=== PATIENT | male | born 1980 | race African-American/Black ===

== ENCOUNTER 2019-09-14 09:30 | Emergency (ER) | payer OTHER ==
[~2019-09-14] VITALS: Ht 177.8 cm; Wt 70.8 kg
--- NOTE | ~2019-09-14 | EKG ---
[facility] [place] [address] ELECTROCARDIOGRAM REPORT Name: MELISSA HAYWOOD Room #: [facility].#: [id number] Admission: 09/14/19 Attend Phys: Discharge: Date of : 80 Report #: [id number] THIS REPORT FOR: cc: FAM - Family physician unknown FAM - Family physician unknown Markus Aparicio MD ~ THIS REPORT FOR: //name// [facility] ED Test Date: 2019-09-14 Test Time: 10:40:27 Pat Name: MELISSA HAYWOOD Department: Room: Gender: M Air Conditioning Technician: [place]ATT : 1980 Requested By: Paulo Mata Order Number: [id number] MD: Measurements Intervals [place] Rate: 57 P: 22 MT: 217 QRS: 36 QRSD: 83 T: 25 QT: 381 QTc: 371 Interpretive Statements Sinus rhythm Prolonged MT interval Probable left ventricular hypertrophy ST elev, probable normal early repol pattern No previous ECG available for comparison [email or web address] By: 1040 1040 Epiphany Epiphany, /EPI
[2019-09-14 10:08] LABS: ABSOLUTE NEUTROPHILS 2.8 thou/uL (1.4-8.2); BASOPHILS 0.6 % (0.0-2.0); HEMATOCRIT 42.1 % (42.0-52.0); HEMOGLOBIN 13.4 gm/dL (14.0-18.0); LYMPHOCYTES 26.2 % (24.0-44.0); MCH 27.7 pg (26.0-34.0); MCHC 31.8 g/dL (28.0-37.0); MONOCYTES 8.2 % (1.0-8.0); PLATELET COUNT 203 thou/uL (150-400); RBC 4.83 mil/uL (4.50-6.00); RDW 13.5 % (10.5-14.5); WBC 4.4 thou/uL (4.0-11.0)
[2019-09-14 10:22] LABS: ANION GAP 5 mmol/L (7-16); BUN 14 mg/dL (7-18); CALCIUM 8.4 mg/dL (8.5-10.1); CHLORIDE 108 mmol/L (98-107); CO2 28 mmol/L (21-32); CREATININE 0.9 mg/dL (0.7-1.3); GLUCOSE 99 mg/dL (74-106); POTASSIUM 4.3 mmol/L (3.5-5.1); SODIUM 141 mmol/L (136-145)
[2019-09-14 10:27] LABS: ALBUMIN 3.6 g/dL (3.4-5.0); MAGNESIUM 1.8 mg/dL (1.8-2.4); SGOT 20 U/L (15-37); SGPT 25 U/L (30-65); TOTAL BILIRUBIN 0.3 mg/dL (<0.1-1.0); TOTAL PROTEIN 7.1 g/dL (6.4-8.2); TROPONIN-I <0.06 ng/mL (<0.06)
[2019-09-14 11:30] LABS: URINE BILIRUBIN NEGATIVE (Negative); URINE BLOOD TRACE (Negative); URINE CLARITY CLEAR; URINE COLOR YELLOW; URINE GLUCOSE-RANDOM* NEGATIVE (Negative); URINE KETONES NEGATIVE (Negative); URINE LEUKOCYTES-REFLEX TRACE (Negative); URINE NITRITE-REFLEX NEGATIVE (Negative); URINE PROTEIN (DIPSTICK) NEGATIVE (Negative); URINE SPECIFIC GRAVITY 1.025 (1.005-1.035); URINE UROBILINOGEN 0.2 E.U./dl (0.2-1.0)
[2019-09-14 11:38] LABS: AMP/METHAMP Negative (Negative); BARBITURATES Negative (Negative); BENZODIAZEPINES Negative (Negative); COCAINE Negative (Negative); METHADONE Negative (Negative); OPIATES Negative (Negative); PCP Negative (Negative)
[2019-09-14] MEDS ORDERED: AMBIEN 5 MG TABL5 M1 PO (11:57)
[2019-09-14 12:40] VITALS: BP 120/71
== END 2019-09-14 15:00 | disposition home or self-care (01) ==
LOC: ER 09:30
PROVIDERS: Emergency Medicine
DX: G47.00 Insomnia, unspecified (principal); F32.9 Major depressive disorder, single episode, unspecified; F17.210 Nicotine dependence, cigarettes, uncomplicated